=== PATIENT | female | born 1980 | race Caucasian/White ===

== ENCOUNTER → 2020-09-19 | Outpatient (CLI) | payer BC ==
--- NOTE | 2020-09-19 11:14 | KCIC ---
EXAM: Bilateral digital screening mammogram with tomosynthesis. HISTORY: 39-year-old female presents for baseline mammography. TECHNIQUE: Full-field digital craniocaudal and mediolateral oblique 2D and 3D tomosynthesis images of both breasts are obtained for evaluation. Computer aided detection was applied. COMPARISON: None. BREAST PARENCHYMAL DENSITY: Level B - Scattered fibroglandular densities. FINDINGS: There are circumscribed nodular densities within the right greater than left breast. The la rgest of these are seen within the 2:00 position of the left breast at mid depth, the 9:00 position o f the right breast at mid depth and the 10:00 position of the right breast at mid to posterior depth. There are additional small areas of nodularity within the right breast predominantly within the ante rior lateral distribution. There is no suspicious calcification or architectural distortion. IMPRESSION: BI-RADS Category 0: Incomplete. Additional imaging needed. RECOMMENDATION: Sonographic imaging of both breasts is recommended to assess areas of nodularity desc ribed above. The mammographic appearance and multiplicity of these lesions favors a benign etiology s uch as cysts. If your mammogram demonstrates that you have dense breast tissue, which could hide abnormalities, and if you have other risk factors for breast cancer that have been identified, you might benefit from s upplemental screening tests that may be suggested by your ordering physician. Dense breast tissue, i n and of itself, is a relatively common condition. This information is not provided to cause undue c oncern, but rather to raise your awareness and to promote discussion with your physician regarding th e presence of other risk factors, in addition to dense breast tissue. A report of your mammography re sults will be sent to you and your physician. You should contact your physician if you have any ques tions or concerns regarding this report. Mammography is a sensitive method for finding small breast cancers, but it does not detect them all a nd is not a substitute for careful clinical examination. A negative mammogram does not negate a clin ically suspicious finding and should not result in delay in biopsying a clinically suspicious abnorma lity. PQRS compliance statement - Patient information was entered into a reminder system with a target due date for the next mammogram. "Our facility is accredited by the [employer] Mammography [employer]." Electronically signed by: Elsa Lugo MD (09/19/2020 11:12 AM) [place] [id number]
== END ==
LOC: KCIC MAMMO 10:07
PROVIDERS: ATTEND Obstetrics & Gynecology
DX: Z12.31 Encounter for screening mammogram for malignant neoplasm of breast (principal)
CPT/HCPCS: 77063; 77067

== ENCOUNTER → 2020-09-21 | Outpatient (CLI) | payer BC ==
--- NOTE | 2020-09-21 09:29 | KCIC ---
EXAM: Bilateral breast sonogram. HISTORY: 39-year-old female presents for evaluation of nodularity within both breasts demonstrated on a baseline mammogram dated 09/19/2020. TECHNIQUE: Sonographic imaging of both breasts including all 4 quadrants and the retroareolar regions was performed. COMPARISON: 09/19/2020. FINDINGS: Sonographic imaging of the right breast demonstrates an oval circumscribed hypoechoic lesio n at the 10:00 position 3 cm from nipple measuring 1.2 cm in maximum dimension. This corresponds with a circumscribed nodular density at the 9:00 lesion demonstrated mammographically. The sonographic ap pearance favors a cyst. There is no convincing sonographic correlate for a circumscribed nodule withi n the upper outer quadrant of the right breast, possibly due to a sonographically occult intramammary lymph node. No additional lesion is seen within the right breast. Sonographic imaging of the left breast demonstrates a 4 mm hypoechoic nodule with internal echogenic focus and blood flow at the 3:00 position 7 cm from the nipple, the appearance of which favors a lymp h node with benign fatty hilum. There is likely corresponds with the mammographic nodule of concern a t the 2:00 position demonstrated mammographically. No additional lesion is seen within the left breas t. IMPRESSION: 1. 1.2 cm suspected cyst at the 10:00 position of the right breast 3 cm from the nipple, correspondin g with a recently demonstrated mammographic nodule of concern. There is no clear correlate for a nodu le within the upper outer quadrant of the right breast demonstrated mammographically, the mammographi c appearance of which favors a benign sonographically occult intramammary lymph node. 2. Small benign-appearing intramammary lymph node within the 3:00 position of the left breast, corres ponding with the recently demonstrated mammographic nodule of concern. 3. BI-RADS Category 3: Probably benign finding(s). Short term follow up with a diagnostic right breas t mammogram in 6 months is recommended to confirm stability of a possible sonographically occult intr amammary lymph node described above. Electronically signed by: Elsa Lugo MD (09/21/2020 9:26 AM) [email or web address]
== END ==
LOC: KCIC US 08:40
PROVIDERS: ATTEND Obstetrics & Gynecology
DX: R92.8 Other abnormal and inconclusive findings on diagnostic imaging of breast (principal); N60.01 Solitary cyst of right breast
CPT/HCPCS: 76641

== ENCOUNTER → 2021-03-08 | Outpatient (CLI) | payer BC ==
--- NOTE | 2021-03-08 12:08 | KCIC ---
Procedure: Diagnostic right 2-D and 3-D mammogram. INDICATION: 6 month follow-up exam probably benign findings in the right breast. COMPARISON: 09/19/2020 mammogram, 09/21/2020 bilateral breast ultrasound. FINDINGS: Breast density: Category B. There are scattered areas of fibroglandular density. Small oval gently lobulated mass in the 9:00 position, approximately 3 cm from the nipple at middle d epth, has decreased slightly in size. It now measures 1.2 cm. This correlates with the cyst identifi ed on prior ultrasound at 10:00, 3 cm from the nipple. The small intramammary lymph node in the 10:00 position, about 10 cm from the nipple, has not increas ed in size and has a benign appearance. No suspicious breast mass, malignant appearing calcifications , or architectural distortion is seen. IMPRESSION: No evidence of malignancy. The small cyst in the 9:00 position of the right breast has de creased slightly in size. Benign intramammary lymph node in the 10:00 position of the right breast. ASSESSMENT: BI-RADS 2. Benign findings. Recommendation: Routine screening mammograms with the next in September 2021. Patient information will be entered into the reminder system for notification of results by mail and target date for the next mammogram. A reminder letter will be generated. Electronically signed by: Rhona Jorge MD (03/08/2021 12:06 PM) [email or web address]
== END ==
LOC: KCIC MAMMO 10:36
PROVIDERS: ATTEND Obstetrics & Gynecology
DX: N60.01 Solitary cyst of right breast (principal)
CPT/HCPCS: 77065; G0279; 77061